=== PATIENT | female | born 1940 | race Caucasian/White ===

== ENCOUNTER → 2018-03-30 | Outpatient (CLI) | payer MEDICARE, BC | LOC: M.RAD 02-18 15:34 | DX: Z12.31 Encounter for screening mammogram for malignant neoplasm of breast (principal); M85.89 Other specified disorders of bone density and structure, multiple sites; Z78.0 Asymptomatic menopausal state ==

== ENCOUNTER → 2019-05-11 | Outpatient (CLI) | payer MEDICARE, BC ==
--- NOTE | 2019-05-14 08:43 | PF ---
[address] [address] PULMONARY FUNCTION REPORT Name: RADU DORAN Room: [facility]#: [id number] Admission: 05/11/19 Attend Phys: Abelardo Richardson MD Discharge: Date of : 44 Report #: [id number] THIS REPORT FOR: //name// CC: Abelardo Su MD DATE OF SERVICE: 05/11/2019 ATTENDING PHYSICIANS: Dr. Lidia Su and Dr. Abelardo Richardson from Radiation Therapy. INDICATION: A 78-year-old female with a history of lung cancer and dyspnea on exertion. Followup PFTs are ordered. FINDINGS: Spirometry demonstrates mild obstructive defect. There is kkum-ix-tjkxsxcj increase with bronchodilator response with 24% increase in vital capacity, 7% increase in FEV1. Postbronchodilator shows an FEV1 of 1.45, FVC is 2.2, ratio is 65%. FEV1 is 86% of predicted. Vital capacity is 97% of predicted. Lung volumes were attempted; not able to undergo. IMPRESSION: Abnormalities suggest mild obstructive airways disease. No significant restrictive lung defect is noted at this time. <ELECTRONICALLY SIGNED> By: Neto De Oliveira MD 05/14/19 0843 [id number] 18Neto De Oliveira MD /nt
== END ==
LOC: M.PUL 10:13
DX: R06.09 Other forms of dyspnea (principal); Z85.118 Personal history of other malignant neoplasm of bronchus and lung

== ENCOUNTER 2019-06-22 11:38 | Inpatient (IN) | payer MEDICARE, BC ==
[2019-06-22] VITALS (8 sets, daily range): BP systolic 107–130; BP diastolic 46–74
[~2019-06-22] VITALS: Ht 152.4 cm; Wt 56.2 kg
[2019-06-22] MEDS ORDERED: GABAPENTIN 100100 MG PO (11:50)
[2019-06-22] MEDS ORDERED: ACYCLOVIR 400400 MG PO (11:51)
[2019-06-22 12:04] LABS: MCH 31.8 pg (26.0-34.0); MCHC 34.7 g/dL (28.0-37.0); MCV 91.7 fL (80.0-100.0); NUCLEATED RBCS 1 /100WBC; RBC 1.76 mil/uL (4.20-5.00); RDW-CV 16.1 % (10.5-14.5)
[2019-06-22 12:12] LABS: HEMATOCRIT 16.1 % (37.0-47.0); HEMOGLOBIN 5.6 gm/dL (12.0-15.0); PLATELET COUNT* 9 thou/uL (150-400); WBC 0.9 thou/uL (4.0-11.0)
[2019-06-22 12:15] LABS: ANION GAP 11 mmol/L (7-16); BUN 24 mg/dL (7-18); CALCIUM 8.9 mg/dL (8.5-10.1); CHLORIDE 100 mmol/L (98-107); CO2 24 mmol/L (21-32); CREATININE 1.6 mg/dL (0.6-1.3); GLUCOSE 121 mg/dL (70-99); POTASSIUM 3.9 mmol/L (3.5-5.1); SODIUM 135 mmol/L (136-145)
[2019-06-22 12:20] LABS: APTT 26.3 Seconds (25.0-31.3); INR 1.2; PROTIME 11.8 Seconds (9.20-11.50)
[2019-06-22 12:26] LABS: ALBUMIN 2.5 g/dL (3.4-5.0); ALKALINE PHOSPHATASE 89 U/L (46-116); NT-PRO BRAIN NAT PEPTIDE 1863 pg/mL (<300); SGOT 51 U/L (15-37); SGPT 92 U/L (30-65); TOTAL BILIRUBIN 0.6 mg/dL (<0.1-1.0); TROPONIN-I LEVEL <0.06 ng/mL (<0.06)
[2019-06-22 12:36] LABS: ABSOLUTE LYMPHOCYTES 0.1 thou/uL (0.8-5.3); ABSOLUTE MONOCYTES 0.2 thou/uL (0.0-1.2); ABSOLUTE NEUTROPHILS 0.6 thou/uL (1.6-8.1); ANISOCYTOSIS 1+; PLATELET ESTIMATE ADEQUATE; TOXIC GRANULATION 1+
--- NOTE | 2019-06-22 16:24 | EKG ---
[place] [address] ELECTROCARDIOGRAM REPORT Name: ESPINOZARADU KOKI Room: [address] ADM IN M.R.#: [id number] Admission: 06/22/19 Attend Phys: Kirit Brown MD Discharge: Date of : 44 Report #: [id number] THIS REPORT FOR: //name// [facility] ED Test Date: 2019-06-22 Test Time: 11:54:28 Pat Name: RADU DORAN Department: Room: [facility] Gender: F Coal Sampler: : 1940 Requested By: Claudy Coello Order Number: [id number] MD: Ihsan Zepeda Measurements Intervals [place] Rate: 103 P: 34 [place]: 134 QRS: 47 QRSD: 78 T: 45 QT: 343 QTc: 449 Interpretive Statements Sinus tachycardia No previous ECG available for comparison Electronically Signed On 06-22-2019 16:24:32 CDT by Ihsan Zepeda [email or web address] <ELECTRONICALLY SIGNED> By: Ihsan Zepeda MD, [facility] 06/22/19 1624 1154 1154 hIsan Zepeda MD, FACC /EPI
--- NOTE | 2019-06-22 18:23 | NUR ---
PT A&Ox4. VITALS STABLE. UP STAND BY. FAMILY IN ROOM. FIRST UNIT OF PRBC INFUSING NOW, NO REACTIONS NOTED. NAUSEA CONTROLLED WITH ZOFRAN. TOLERATING FOOD. IV PATENT. DENIED PAIN. FALL PRECAUTIONS IN PLACE. CALL LIGHT WITHIN REACH. WILL CONTINUE TO MONIOR.
[2019-06-23 05:36] LABS: BASOPHILS 0.8 %; EOSINOPHILS 2.3 %; HEMATOCRIT 21.8 % (37.0-47.0); LYMPHOCYTES 12.9 %; MCH 31.3 pg (26.0-34.0); MCHC 34.8 g/dL (28.0-37.0); MCV 89.9 fL (80.0-100.0); MONOCYTES 13.9 %; MPV 8.2 fl. (7.2-11.1); NUCLEATED RBCS 1 /100WBC; POLYS 70.1 %; RBC 2.42 mil/uL (4.20-5.00)
[2019-06-23 05:46] LABS: ABSOLUTE LYMPHOCYTES 0.1 thou/uL (0.8-5.3); ABSOLUTE MONOCYTES 0.1 thou/uL (0.0-1.2); ABSOLUTE NEUTROPHILS 0.6 thou/uL (1.6-8.1); HEMOGLOBIN 7.6 gm/dL (12.0-15.0); PLATELET COUNT* 57 thou/uL (150-400)
[2019-06-23 05:48] LABS: WBC 0.9 thou/uL (4.0-11.0)
[2019-06-23 05:59] LABS: CALCIUM 8.8 mg/dL (8.5-10.1); CREATININE 1.2 mg/dL (0.6-1.3); POTASSIUM 3.7 mmol/L (3.5-5.1)
--- NOTE | 2019-06-23 06:16 | NUR ---
PATIENT HAS SLEPT WELL THROUGHOUT THE NIGHT. VSS ON RA. PATIENT RECEIVED 2 UNITS OF PRBC'S AND 1 UNIT OF PLATELETS. PATIENT TOLERATED TRANSFUSION WELL. NO SIDE EFFECTS OR COMPLAINTS NOTED. DAUGHTER IN ROOM AT BEDSIDE. PATIENT SLEEPING AT THIS TIME. PATIENT INSTRUCTED TO USE CALL LIGHT WHEN NEEDING ASSISTANCE. HOURLY ROUNDS MADE. WILL CONTINUE WITH PLAN OF CARE AND NURSING TO MONITOR.
[2019-06-23 08:00] VITALS: BP 130/72
[2019-06-23 10:22] VITALS: BP 130/72
--- NOTE | 2019-06-23 12:01 | NUR ---
DISCHARGE NOTE - REVIEWED DISCHARGE INSTRUCTIONS WITH PT AND DTR. NO QUESTIONS. IV REMOVED WITHOUT DIFFICULTY. ALL BELONGINGS SENT WITH PT.
== END 2019-06-23 12:02 | disposition home or self-care (01) | DRG 808 ==
LOC: M.ERS 11:38 → M.TBA-ER 12:42 → M.ORTHSURG 12:42
PROVIDERS: Family Medicine; ADMIT Internal Medicine
PROC: 30233R1 Transfusion of Nonautologous Platelets into Peripheral Vein, Percutaneous Approach (ICD-10-PCS; principal; 2019-06-22)
PROC: 30233N1 Transfusion of Nonautologous Red Blood Cells into Peripheral Vein, Percutaneous Approach (ICD-10-PCS; 2019-06-22)
DX: D61.810 Antineoplastic chemotherapy induced pancytopenia (principal); E43 Unspecified severe protein-calorie malnutrition; C34.90 Malignant neoplasm of unspecified part of unspecified bronchus or lung; J02.9 Acute pharyngitis, unspecified; T45.1X5A Adverse effect of antineoplastic and immunosuppressive drugs, initial encounter; Z92.21 Personal history of antineoplastic chemotherapy; Z92.3 Personal history of irradiation; Z79.899 Other long term (current) drug therapy; Z68.24 Body mass index [BMI] 24.0-24.9, adult; Y92.89 Other specified places as the place of occurrence of the external cause

== ENCOUNTER 2019-07-14 21:33 | Inpatient (IN) | payer MEDICARE, BC ==
[~2019-07-14] VITALS: Ht 152.4 cm; Wt 58.6 kg
[~2019-07-14 21:33] MED LIST: ACYCLOVIR 400400 MG PO; GABAPENTIN 100100 MG PO
[2019-07-14 21:39] VITALS: BP 153/53
[2019-07-14 21:57] LABS: URINE BILIRUBIN NEGATIVE (Negative); URINE BLOOD 2+ (Negative); URINE CLARITY CLEAR; URINE COLOR YELLOW; URINE GLUCOSE-RANDOM NEGATIVE (Negative); URINE KETONES NEGATIVE (Negative); URINE LEUKOCYTES-REFLEX 2+ (Negative); URINE NITRITE-REFLEX NEGATIVE (Negative); URINE PROTEIN 1+ (Negative); URINE UROBILINOGEN 0.2 E.U./dl (0.2-1.0)
[2019-07-14 22:02] LABS: BACTERIA-REFLEX >30 Many /HPF (None Seen); MUCUS None Seen strn/LPF (None Seen); SQUAMOUS >10 Many /LPF (0-3)
[2019-07-14 22:03] LABS: URINE WBC-REFLEX >25 Many /HPF (0-5)
[2019-07-14 22:04] LABS: CASTS None Seen /LPF (None Seen); CRYSTALS None Seen /LPF (None Seen); URINE RBC 3-10 Few /HPF (0-2)
[2019-07-14 22:12] LABS: MCH 31.1 pg (26.0-34.0); MCV 88.8 fL (80.0-100.0); MPV 6.8 fl. (7.2-11.1); NUCLEATED RBCS 3 /100WBC; RBC 1.94 mil/uL (4.20-5.00); RDW-CV 15.3 % (10.5-14.5)
[2019-07-14 22:14] LABS: HEMATOCRIT 17.2 % (37.0-47.0); PLATELET COUNT* 44 thou/uL (150-400); WBC < 0.3 thou/uL (4.0-11.0)
--- NOTE | 2019-07-14 22:17 | NUR ---
PT REFUSED IVF STATING " I HAD TWO BIG BAGS TODAY AT TREATMENT" NOTIFIED DR DA SILVA
[2019-07-14 22:19] LABS: ANION GAP 12 mmol/L (7-16); BUN 18 mg/dL (7-18); CALCIUM 8.2 mg/dL (8.5-10.1); CHLORIDE 100 mmol/L (98-107); CO2 20 mmol/L (21-32); CREATININE 1.4 mg/dL (0.6-1.3); GLUCOSE 218 mg/dL (70-99); INR 1.1; POTASSIUM 4.1 mmol/L (3.5-5.1); SODIUM 132 mmol/L (136-145)
[2019-07-14 22:31] LABS: ALBUMIN 2.4 g/dL (3.4-5.0); ALKALINE PHOSPHATASE 76 U/L (46-116); LIPASE 113 U/L (73-393); NT-PRO BRAIN NAT PEPTIDE 367 pg/mL (<300); SGOT 16 U/L (15-37); SGPT 24 U/L (30-65); TOTAL BILIRUBIN 0.3 mg/dL (<0.1-1.0); TOTAL PROTEIN 6.3 g/dL (6.4-8.2); TROPONIN-I LEVEL <0.06 ng/mL (<0.06)
[2019-07-14 22:48] LABS: ABSOLUTE LYMPHOCYTES 0.1 thou/uL (0.8-5.3); ABSOLUTE NEUTROPHILS 0.1 thou/uL (1.6-8.1)
[2019-07-14 22:49] LABS: PLATELET ESTIMATE DECREASED
[2019-07-14 22:50] LABS: OVALOCYTES Occasional
[2019-07-14 22:51] LABS: ANISOCYTOSIS Occasional
[2019-07-14 22:59] LABS: INFLUENZA A ANTIGEN Negative (Negative); INFLUENZA B ANTIGEN Negative (Negative)
[2019-07-15] VITALS (10 sets, daily range): BP systolic 124–165; BP diastolic 55–63
[2019-07-15 00:44] LABS: HEMATOCRIT 16.5 % (37.0-47.0); HEMOGLOBIN 5.7 gm/dL (12.0-15.0)
[2019-07-15] MEDS ORDERED: ZOFRAN ODT4 MG PO (01:30)
--- NOTE | 2019-07-15 06:00 | NUR ---
PT ADMITTED TO ROOM 218 WITH DX OF NEUTROPENIC FEVER, ANEMIA AND THROMBOCYTOPENIA. PT HGB AT ADMISSION 5. PT PLACED IN PROTECTIVE ISOLATION. PT SEPSIS POSITIVE AND RECIEVING IV BOLUS X3. PT RECEIEVED LAST CHEMO 3 DAYS AGO.PT RECIEVED CHEMO VIA PERIPHERAL ACCESS THAT WAS ESTABLISHED EACH TIME ( NO PORT OR CENTRAL LINE). PT GIVEN ACETAMINOPHEN FOR FEVER MANAGEMENT AND VOMITED BOTH BACK UP. ORDER OBTAINED FOR IV ZOFRAN. PT ABLE TO TOLERATE PO ACETAMINOPEN AND DIPHENHYDRAMINE PRIOR TO TRANSFUSION. PT EDUCATED ON PLAN OF CARE,FALL PRECAUTIONS, SAFETY MANAGEMENT,DISEASE PROCESS AND ISOLATION. PT CALL LIGHT IN REACH WITH NO FURTHER QUESTIONS. ASSESSMENT DOCUMENTED,MEDS GIVEN PER EMAR.
--- NOTE | 2019-07-15 10:35 | NUR ---
ASSUMED CARE OF PATIENT THIS AM AT 0730. PATIENT IS DROWSY, ORIENTED X 4. SHE DENIES PAIN THIS AM. TELE SHOWS SINUS TACHY. 1ST UNIT OF BLOOD COMPLETED BY VEGETABLE SORTER, NO SIGNS OF REACTION. PATIENT'S APPETITE IS POOR. NEUTRAPENIC PRECAUTIONS CONTINUED. HGB NOW 7.0. PATIENT'S FAMILY IS AT THE BEDSIDE. PATIENT ASSISTED UP TO THE BSC THIS AM FOR BM. WILL CONTINUE TO MONITOR PATIENT COMFORT.
--- NOTE | 2019-07-15 16:15 | EKG ---
[place] [address] ELECTROCARDIOGRAM REPORT Name: RADU DORAN Room: [address] ADM IN M.R.#: [id number] Admission: 07/14/19 Attend Phys: Safia Peres MD Discharge: Date of : 44 Report #: [id number] THIS REPORT FOR: //name// [facility] ED Test Date: 2019-07-14 Test Time: 21:52:21 Pat Name: RADU DORAN Department: Room: [facility] Gender: F Medical Information Specialist: : 1940 Requested By: Claudy Coello Order Number: [id number] MD: Bobby Smith Measurements Intervals [place] Rate: 138 P: 70 NC: 118 QRS: 58 QRSD: 78 T: 36 QT: 292 QTc: 443 Interpretive Statements Sinus tachycardia Low voltage, extremity leads Baseline wander in lead(s) V6 Compared to ECG 06/22/2019 11:54:28 Low QRS voltage now present Electronically Signed On 07-15-2019 16:14:52 CDT by Bobby Smith [email or web address] <ELECTRONICALLY SIGNED> By: Bobby Smith MD, FACC 07/15/19 1614 51 51 Bobby Smith MD, FAC /EPI
--- NOTE | 2019-07-15 17:25 | 2DMMODE ---
[place] [address] 2 D/M-MODE ECHOCARDIOGRAM Name: ESPINOZARADU KOKI Room: [address] IN [facility]#: [id number] Admission: 07/14/19 Attend Phys: Safia Peres MD Discharge: Date of : 44 Date of Service: 07/15/19 1725 Report #: [id number] THIS REPORT FOR: //name// APPROVED REPORT Study performed: 07/15/2019 16:51:39 EXAM: Comprehensive 2D, Doppler, and color-flow Echocardiogram Patient Location: In-Patient Room #: 218 Status: routine BSA: 1.50 HR: 112 bpm BP: 165/55 mmHg Rhythm: NSR Other Information Study Quality: Good Indications Sepsis Elevated Troponin 2D Dimensions IVSd: 7.65 (7-11mm) LVOT Diam: 19.18 (18-24mm) LVDd: 38.07 mm PWd: 8.68 (7-11mm) Ascending Ao: 26.95 (22-36mm) LVDs: 26.50 (25-40mm) Aortic Root: 26.73 mm Volumes Left Atrial Volume (Systole) LA ESV Index: 14.30 mL/m2 Aortic Valve AoV Peak Alirio.: 1.51 m/s AO Peak Gr.: 9.11 mmHg LVOT Max P.78 mmHg AO Mean Gr.: 4.78 mmHg LVOT Mean P.40 mmHg LVOT Max V: 1.09 m/s AO V2 VTI: 22.33 cm LVOT Mean V: 0.72 m/s LEONARD (VTI): 2.36 cm2 LVOT V1 VTI: 18.27 cm Mitral Valve E/A Ratio: 0.78 MV Decel. Time: 142.96 [place] [address] 2 D/M-MODE ECHOCARDIOGRAM Name: RADU DORAN Room: [address] IN ..#: [id number] Admission: 07/14/19 Attend Phys: Safia Peres MD Discharge: Date of : 44 Date of Service: 07/15/19 1725 Report #: [id number] MV E Max Alirio.: 1.00 m/s MV PHT: 41.46 ms MVA (PHT): 5.31 cm2 TDI E/Lateral E': 8.33 E/Medial E': 7.69 Medial E' Alirio.: 0.13 m/s Lateral E' Alirio.: 0.12 m/s Pulmonary Valve PV Peak Alirio.: 1.15 m/s PV Peak Gr.: 5.25 mmHg Left Ventricle The left ventricle is normal size. There is normal LV segmental wall motion. There is normal left ventricular wall thickness. Left ventricular systolic function is normal. LVEF is 55-60%. Grade I - abnormal relaxation pattern. Right Ventricle The right ventricle is normal size. The right ventricular systolic function is normal. Atria The left atrium size is normal. The right atrium size is normal. Aortic Valve The aortic valve is normal in structure. No aortic regurgitation is present. There is no aortic valvular stenosis. Mitral Valve The mitral valve is normal in structure. Trace mitral regurgitation. No evidence of mitral valve stenosis. Tricuspid Valve The tricuspid valve is normal in structure. Unable to assess PA pressure. Trace tricuspid regurgitation. Pulmonic Valve The pulmonary valve is normal in structure. There is no pulmonic valvular regurgitation. Great Vessels The aortic root is normal in size. IVC is normal in size and collapses >50% [place] [address] 2 D/M-MODE ECHOCARDIOGRAM Name: RADU DORAN Room: [address] IN [facility]#: [id number] Admission: 07/14/19 Attend Phys: Safia Peres MD Discharge: Date of : 44 Date of Service: 07/15/19 1725 Report #: [id number] Pericardium There is no pericardial effusion. <Conclusion> The left ventricle is normal size. There is normal left ventricular wall thickness. Left ventricular systolic function is normal. LVEF is 55-60%. Grade I - abnormal relaxation pattern. There is normal LV segmental wall motion. Trace mitral regurgitation. Unable to assess PA pressure. Trace tricuspid regurgitation. IVC is normal in size and collapses >50% with inspiration. <ELECTRONICALLY SIGNED> By: Bobby Smith MD, FACC 07/15/191724 24 24 Bobby Smith MD, FACC /INF
[2019-07-16] VITALS (7 sets, daily range): BP systolic 150–184; BP diastolic 60–80
[2019-07-16 04:36] LABS: MCH 30.5 pg (26.0-34.0); MCHC 35.2 g/dL (28.0-37.0); MCV 86.8 fL (80.0-100.0); MPV 7.6 fl. (7.2-11.1); RBC 2.14 mil/uL (4.20-5.00); RDW-CV 14.9 % (10.5-14.5)
[2019-07-16 04:49] LABS: ALBUMIN 1.8 g/dL (3.4-5.0); CALCIUM 8.3 mg/dL (8.5-10.1); CREATININE 1.1 mg/dL (0.6-1.3); MAGNESIUM 1.6 mg/dL (1.8-2.4); POTASSIUM 3.3 mmol/L (3.5-5.1); TOTAL BILIRUBIN 0.5 mg/dL (<0.1-1.0); TOTAL PROTEIN 5.7 g/dL (6.4-8.2)
[2019-07-16 05:00] LABS: HEMATOCRIT 18.6 % (37.0-47.0); HEMOGLOBIN 6.5 gm/dL (12.0-15.0); PLATELET COUNT* 16 thou/uL (150-400); WBC < 0.3 thou/uL (4.0-11.0)
--- NOTE | 2019-07-16 06:04 | NUR ---
PT HAS RESTED COMFORTABLY T/O NIGHT WITH NO COMPLAINTS OF NAUSEA OR PAIN. PT HAD ONE ELEVEATED TEMPERATURE AT 0000. UPON REASSESSMENT PT TEMPERATURE HAD DECREASED. PT APPEARS MORE HIGH SPIRITED. PT VANCO TROUGH SET FOR 07/17. ECHO SHOWED EF OF 55-60%.PT CONTINUES TO GAIN ASSISTANCE TO BSC FROM FAMILY AND IS NON COMPLIANT WITH PRECAUTIONS.
--- NOTE | 2019-07-16 07:32 | CON ---
[address] [address] CONSULTATION Name: RADU DORAN Room: [address] IN M.R.#: [id number] Admission: 07/14/19 Attend Phys: Safia Peres MD Discharge: Date of : 44 Report #: [id number] THIS REPORT FOR: //name// CC: Myrtle Peres DATE OF SERVICE: 07/15/2019 INFECTIOUS DISEASE CONSULTATION ATTENDING PHYSICIAN: Safia Peres MD. REASON FOR EVALUATION: Neutropenic fever. HISTORY OF PRESENT ILLNESS: Chart reviewed, patient examined. This is a 78-year-old woman with a known history of breast carcinoma, is undergoing chemotherapy, where she received the completion of her last course 3 days prior to admission. She presented to the office, was found to be profoundly neutropenic. She has developed some temperature elevations recorded up to 101.4 overnight with a pulse of 133, pressure has been somewhat less labile, did undergo evaluation for suspected infectious complication. Urinalysis did show remarkably high white count of greater than 25 white cells in the setting of a total white count of 300. Chest x-ray was otherwise unrevealing, was empirically started on combination therapy with cefepime and vancomycin. She is somewhat lethargic. She is in moderate distress at this point. There is some dyspnea with any activity, poor p.o. intake and appetite. ALLERGIES: None known. CURRENT MEDICATIONS: Include vancomycin, cefepime, famotidine, p.r.n. analgesics and antiemetics. PAST MEDICAL HISTORY: Described as lung cancer. SOCIAL HISTORY: Nonsmoker, never has illicit drug use. No ethanol. FAMILY HISTORY: Noncontributory. REVIEW OF SYSTEMS: Otherwise, unremarkable 10-point review of systems with exception of the above history of present illness. PHYSICAL EXAMINATION: GENERAL: She appears chronically ill, undernourished, ifkg-ge-pxhmkopq distress. She is pale, has alopecia. VITAL SIGNS: Temperature 98.4, pulse 120, respirations 18, blood pressure is 124/56. [address] [address] CONSULTATION Name: RADU DORAN Room: [address] IN [facility]#: [id number] Admission: 07/14/19 Attend Phys: Sfaia Peres MD Discharge: Date of : 44 Report #: [id number] SKIN: Warm, dry, no rashes. HEENT: Normocephalic. Extraocular muscles intact. NECK: Supple. LUNGS: Generally clear to auscultation. HEART: Regular, tachycardic. I do not appreciate murmur. ABDOMEN: Soft, nontender, nondistended. EXTREMITIES: No cyanosis. GENITOURINARY/RECTAL: Deferred. LABORATORY DATA: Urinalysis, greater than 25 white cells, greater than 30 bacteria. Chest x-ray, no acute process. Lactic acid of 2.0. Electrolytes: Sodium 132, potassium 4.1, chloride 100, bicarbonate is 20, anion gap of 12, BUN and creatinine 18 and 1.4. Albumin of 2.4, total protein 6.3. LFTs unremarkable. Estimated GFR of 37. CBC: White count of less than 0.3, hemoglobin 6.0, hematocrit 17.2, platelets of 44, absolute neutrophil count of 100. Influenza antigen was negative. Blood cultures are sterile thus far. ASSESSMENT: Fevers in the setting of profound neutropenia due to chemotherapy with a complication. We will continue combination of broad-spectrum therapy. Urinary tract seems to be a likely candidate for a pyogenic infection of more focal nature. We will await those cultures. She remains at high risk for severe illness, suspect she has fairly profound anemia, malnourished as well. Monitor expectantly. I discussed with the patient and her daughter. <ELECTRONICALLY SIGNED> By: Real Man MD 07/16/19 0732 1340 Joginger Man MD /nt
--- NOTE | 2019-07-16 10:36 | NUR ---
ASSUMED CARE OF PT AT 0730. PT RESTING IN BED. AND DAUGHTER AT BEDSIDE. PT A&0X4, DENIES ANY PAIN OR SHORTNESS OF BREATH AT THIS TIME. FEBRILE THIS AM AT 100.1. RECHECK-98.1 POST IV VANCOMYCIN. TRACING ST ON THE PUFFER TENDER. RATE IN THE LOW 100'S. NEUTROPENIC PRECUATIONS IN PLACE. ON RA SAT 95%, CONTINUOUS PULSE OX IN PLACE.UP WITH SBA TO BATHROOM. PT HAD CXR THIS AM. REFER TO RESULTS. PT GOAL FOR TODAY IS TRANSFUSE PRBCS AND PLATELETS, REPLACE POTASSIUM AND MAGNESIUM PER ELECTROLYTE PROTOCOL AND REMAIN AFEBRILE. AM ASSESSMENT CHARTED. MEDICATIONS PER DEC. PT REPOSITIONS SELF WITH REMINDERS. HOURLY ROUNDING OBSERVED. BED IN LOW POSITION. CALL LIGHT WITHIN REACH. WILL CONTINUE PLAN OF CARE.
--- NOTE | 2019-07-16 15:19 | NUR ---
Pt is A&O. Resides at home with her . available to assist as needed. Receiving chemo at . Goal is home. No needs anticipated.
--- NOTE | 2019-07-16 18:54 | NUR ---
1 UNIT PLATELETS AND 1 UNIT PRBCS TRANSFUSED WITH NO DIFFICULTIES. PT HAD SLIGHT FEVER THROUGHOUT AT 100.7- PRN TYLENOL GIVEN WITH COMPLETE RELIEF-97.9. POTASSIUM AND MAGNESIUM REPLACED PER ELECTROLYTE PROTOCOL. REFER TO EMAR. PT DENIES ANY PAIN OR SHORTNESS OF BREATH THROUGHOUT SHIFT. MILD WHEEZING NOTED. CONTINUES TO TRACE ST ON THE VAN DRIVER HELPER. RATE IN THE LOW 100'S. ON RA SAT 96-98%. UP WITH SBA TO BATHROOM. APPETITE FAIR THROUGHOUT SHIFT. IVF. MEDICATIONS PER DEC. PT REPOSITIONS SELF. HOURLY ROUNDING OBSERVED. BED IN LOW POSITION. CALL LIGHT WITHIN REACH. WILL CONTINUE PLAN OF CARE.
[2019-07-16 19:46] LABS: HEMOGLOBIN 8.2 gm/dL (12.0-15.0); MCHC 35.5 g/dL (28.0-37.0); MCV 87.3 fL (80.0-100.0); MPV 7.6 fl. (7.2-11.1); RBC 2.64 mil/uL (4.20-5.00); RDW-CV 14.8 % (10.5-14.5)
[2019-07-16 19:50] LABS: PLATELET COUNT* 47 thou/uL (150-400); WBC < 0.3 thou/uL (4.0-11.0)
[2019-07-17] VITALS: BP 172/91
[2019-07-17 04:00] VITALS: BP 158/84
[2019-07-17 04:38] LABS: HEMATOCRIT 23.6 % (37.0-47.0); HEMOGLOBIN 8.4 gm/dL (12.0-15.0); MCH 30.8 pg (26.0-34.0); MCHC 35.5 g/dL (28.0-37.0); MCV 86.5 fL (80.0-100.0); MPV 7.6 fl. (7.2-11.1); RBC 2.73 mil/uL (4.20-5.00); RDW-CV 14.9 % (10.5-14.5)
[2019-07-17 04:50] LABS: CALCIUM 8.8 mg/dL (8.5-10.1); MAGNESIUM 1.8 mg/dL (1.8-2.4); POTASSIUM 3.9 mmol/L (3.5-5.1)
[2019-07-17 04:59] LABS: PLATELET COUNT* 34 thou/uL (150-400); WBC < 0.3 thou/uL (4.0-11.0)
[2019-07-17 13:28] VITALS: BP 174/75
[2019-07-17 16:00] VITALS: BP 174/96
--- NOTE | 2019-07-17 17:14 | NUR ---
ASSUMED PT CARE AT 0730, FULL ASSESMENT DONE CHARTED. PT A/O X4, C/O NOT SLEEPING LAST NIGHT. PT C/O BACK PAIN, OFFERED MEDICATION OR HEAT, PT REFUSED, PT REPOSITIONED TO BE MORE COMFORTABLE IN BED. CARES CLUSTERED THIS SHIFT. PTS VSS, ST ON THE MONITOR. REVERSE ISOLATION MAINTAINED. PT C/O NAUSEA, PROMETHAZINE ORDERED, PT TOLERATED WELL, ABLE TO EAT THIS AFTERNOON. FALL PRECAUTIONS IN PLACE. PTS AT BEDSIDE THIS SHIF. WILL CONTINUE WITH PLAN OF CARE.
[2019-07-17 20:45] VITALS: BP 165/83
[2019-07-18] VITALS (7 sets, daily range): BP systolic 133–163; BP diastolic 64–99
--- NOTE | 2019-07-18 05:05 | NUR ---
PT CARE ASSUMED AT 1800. ALERT AND ORIENTED X4. CALL LIGHT WITHIN REACH AND BED IN LOW POSITION. DENIES PAIN AND SOB. TEMPRATURE RISED TO 100.1 MEDICATION GIVEN PER EMAR. HOURLY ROUNDING DONE FOR PT SAFETY.
[2019-07-18 08:25] LABS: HEMATOCRIT 25.3 % (37.0-47.0); MPV 8.5 fl. (7.2-11.1)
[2019-07-18 08:27] LABS: MCHC 35.6 g/dL (28.0-37.0); MCV 87.3 fL (80.0-100.0); RBC 2.9 mil/uL (4.20-5.00); RDW-CV 14.7 % (10.5-14.5)
[2019-07-18 08:39] LABS: CALCIUM 9.4 mg/dL (8.5-10.1); CREATININE 1.1 mg/dL (0.6-1.3); MAGNESIUM 1.8 mg/dL (1.8-2.4); POTASSIUM 3.4 mmol/L (3.5-5.1)
[2019-07-18 08:55] LABS: WBC 0.7 thou/uL (4.0-11.0)
[2019-07-18 16:49] LABS: HEMATOCRIT 23.4 % (37.0-47.0); HEMOGLOBIN 8.2 gm/dL (12.0-15.0); MCH 30.8 pg (26.0-34.0); MCHC 35.1 g/dL (28.0-37.0); MCV 87.7 fL (80.0-100.0); MPV 8.4 fl. (7.2-11.1); RBC 2.67 mil/uL (4.20-5.00)
[2019-07-18 16:52] LABS: WBC 1.1 thou/uL (4.0-11.0)
--- NOTE | 2019-07-18 19:41 | NUR ---
ASSUMED PT CARE AT 0730, FULL ASSESMENT DONE CHARTED. PT ORIENTED X4, DROWSY AT TIMES, WAS PLEASANT THIS AM, UP TO CHAIR AND TOOK A SHOWER. PT VERY TIRED THIS AFTERNOON, FRUSTRATED BEING DISTURBED. ATTEMPTED TO CLUSTER CARE AND MINIMIZE INTERRUPTIONS. PT HAD 1 UNTI PLATELETS THIS AFTERNOON TOLERATED WELL. PT HAS POOR APITITE. WILL DRINK BOOST STRAWBERRY. PT DENIES PAIN, N/V LESS THAN YESTERDAY. FALL PRECAUTOINS IN PLACE. NEUTROPENIC PRECAUTIONS IN PLACE. REPORT GIVEN TO CINDI TEJEDA.
--- NOTE | 2019-07-18 21:14 | NUR ---
MARK BULLOCK ORDERED, LAB ENETERED ROOM TO DRAW PT CONFRONTED LAB STATING THAT NO ONE IS TO DRAW LABS PER DR ORDER UNTIL AM.PT IS VERY FRUSTRATED,IRRITATED AT MULTIPLE DIFFERENT DIRECTIONS THAT HAVE BEEN TOLD ARE TO OCCUR BUT APPEARS THOUGH "NO ONE TALKS TO EACH OTHER." I AM TO HANG 2300 ANTIBIOTIC PER PT REQUEST THEN TO LEAVE PT ALONE.
--- NOTE | 2019-07-19 05:53 | NUR ---
PT HAS RESTED COMFORTABLY T/O NIGHT WITHOUT INTERRUPTIONS.
[2019-07-19 07:33] LABS: HEMATOCRIT 23.8 % (37.0-47.0); HEMOGLOBIN 8.4 gm/dL (12.0-15.0); MCH 30.9 pg (26.0-34.0); MCHC 35.3 g/dL (28.0-37.0); MCV 87.4 fL (80.0-100.0); MPV 8.8 fl. (7.2-11.1); RBC 2.72 mil/uL (4.20-5.00); RDW-CV 15.2 % (10.5-14.5)
[2019-07-19 07:35] LABS: WBC 1.8 thou/uL (4.0-11.0)
[2019-07-19 07:41] LABS: CALCIUM 9.4 mg/dL (8.5-10.1); CREATININE 1.1 mg/dL (0.6-1.3); MAGNESIUM 1.7 mg/dL (1.8-2.4); POTASSIUM 3.4 mmol/L (3.5-5.1)
[2019-07-19 08:30] VITALS: BP 152/61
[2019-07-19 10:37] VITALS: BP 146/66; BP 153/75; BP 162/72
[2019-07-19 16:29] VITALS: BP 146/70
--- NOTE | 2019-07-19 18:26 | NUR ---
I ASSUMED CARE OF THE PATIENT AT 0700. SHE IS ALERT AND ORIENTED X4 AND IS UP WITH SBA TO THE RESTROOM/BSC. BED IS IN THE LOW LOCKED POSITION AND CALL LIGHT IS IN REACH. HOURLY ROUNDING IS COMPLETED AND PATIENT NEEDS ARE MET. PAIN IS DENIED. FAMILY IS AT THE BEDSIDE. CRITICAL LABS WERE CALLED IN AND PLATELETS WERE GIVEN. PATIENT HAS PERKED UP A BIT. LABS WERE FAXED TO HER ONCOLOGIST. CHEMO WAS FINISHED 07/11 AND FAMILY HAS REQUESTED THAT SHE NOT BE BOTHERED IN THE NIGHT SO HER SLEEP IS NOT INTERRUPTED. WILL CONTINUE TO MONITOR.
[2019-07-19 20:00] VITALS: BP 141/66
--- NOTE | 2019-07-20 01:02 | NUR ---
PT ALERT, ORIENTED, T[place]. UP WITH STAND BY ASSIST. TELEMETRY SHOWS ST. ON RA. PT REQUESTS NO VS OR LABS DURING SLEEP.
[2019-07-20 07:40] LABS: HEMATOCRIT 21.7 % (37.0-47.0); HEMOGLOBIN 7.5 gm/dL (12.0-15.0); MCH 30.4 pg (26.0-34.0); MCHC 34.7 g/dL (28.0-37.0); MCV 87.4 fL (80.0-100.0); MPV 8.2 fl. (7.2-11.1); RBC 2.48 mil/uL (4.20-5.00); RDW-CV 15.2 % (10.5-14.5)
[2019-07-20 07:42] LABS: PLATELET COUNT* 41 thou/uL (150-400)
[2019-07-20 07:51] LABS: MAGNESIUM 1.6 mg/dL (1.8-2.4)
[2019-07-20 09:06] LABS: ABSOLUTE LYMPHOCYTES 0.3 thou/uL (0.8-5.3); ABSOLUTE MONOCYTES 0.2 thou/uL (0.0-1.2); ABSOLUTE NEUTROPHILS 2.5 thou/uL (1.6-8.1)
[2019-07-20 09:07] LABS: PLATELET ESTIMATE DECREASED; TOXIC GRANULATION 3+
[2019-07-20 09:08] LABS: HYPOCHROMASIA 2+; MICROCYTES 1+
--- NOTE | 2019-07-20 10:59 | NUR ---
Spoke with , anticipate dc to home tomorrow, no needs anticipated.
[2019-07-20 16:34] VITALS: BP 133/69
--- NOTE | 2019-07-20 18:23 | NUR ---
ASSUMED PT CARE AT 0700, PT A&O X4, UP WITH WALKER, REMAINS MED SURG STATUS, FULL ASSESSMENT CHARTED. CONT ON REVERSE ISOLATION FOR NEUTROPENIC PRECAUTIONS, CONT TO WORK WITH PT/OT, TOLERATING WELL. HOURLY ROUNDING COMPLETED.
--- NOTE | 2019-07-21 05:27 | NUR ---
ASSUMED PT CARE AT 1915. PT AAOX4, PT VOICED NO CONCERNS THIS SHIFT. VVS AT START OF SHIFT. PT REQUESTED NO INTERRUPTIONS AFTER INITIAL VS AND ASSESSMENT UNTIL 0700. PT SPOUSE AT BEDSIDE OVERNIGHT. CALL LIGHT WITHIN REACH.
[2019-07-21 07:05] VITALS: BP 133/66
[2019-07-21 07:33] LABS: HEMATOCRIT 22.4 % (37.0-47.0); MCHC 35.6 g/dL (28.0-37.0); MPV 7.7 fl. (7.2-11.1); NUCLEATED RBCS 0 /100WBC; RBC 2.58 mil/uL (4.20-5.00); RDW-CV 15.1 % (10.5-14.5); WBC 5.6 thou/uL (4.0-11.0)
[2019-07-21 07:37] LABS: PLATELET COUNT* 31 thou/uL (150-400)
[2019-07-21 07:42] LABS: CALCIUM 9.1 mg/dL (8.5-10.1); MAGNESIUM 1.6 mg/dL (1.8-2.4)
[2019-07-21 08:00] LABS: POTASSIUM 2.8 mmol/L (3.5-5.1)
[2019-07-21 08:18] LABS: ABSOLUTE LYMPHOCYTES 0.3 thou/uL (0.8-5.3); ABSOLUTE MONOCYTES 0.2 thou/uL (0.0-1.2); ABSOLUTE NEUTROPHILS 5.1 thou/uL (1.6-8.1); PLATELET ESTIMATE ADEQUATE
--- NOTE | 2019-07-21 10:00 | NUR ---
INITAL ASSESSMENT COMPLETED CHARTED. VSS. PT DENIES PAIN, CP, SOA, N/V/D AT THIS TIME. PT DENIES ANY FURTHER NEEDS AT THSI TIME. HOURLY ROUNDING IN PLACE, CLWR.
[2019-07-21] MEDS ORDERED: NYAMYC15 GM TOP (11:25)
[2019-07-21] MEDS ORDERED: LEVAQUIN 500 M500 M1 PO (11:25)
[2019-07-21] MEDS ORDERED: GRANIX300 MCG/0. SUBQ (11:25)
[2019-07-21 13:09] VITALS: BP 133/66
--- NOTE | 2019-07-21 15:54 | NUR ---
Pt and declined HH
== END 2019-07-21 14:15 | disposition home or self-care (01) | DRG 808 ==
LOC: M.ERS 21:33 → M.2W 22:29 → M.TBA-ER 22:29 → M.2W 23:48
PROVIDERS: Family Medicine; Internal Medicine; ADMIT Family Medicine
PROC: 30233N1 Transfusion of Nonautologous Red Blood Cells into Peripheral Vein, Percutaneous Approach (ICD-10-PCS; principal; 2019-07-15)
PROC: 30233R1 Transfusion of Nonautologous Platelets into Peripheral Vein, Percutaneous Approach (ICD-10-PCS; 2019-07-19)
DX: D61.810 Antineoplastic chemotherapy induced pancytopenia (principal); R65.11 Systemic inflammatory response syndrome (SIRS) of non-infectious origin with acute organ dysfunction; N39.0 Urinary tract infection, site not specified; E44.1 Mild protein-calorie malnutrition; C34.90 Malignant neoplasm of unspecified part of unspecified bronchus or lung; D61.9 Aplastic anemia, unspecified; I10 Essential (primary) hypertension; E78.5 Hyperlipidemia, unspecified; R50.81 Fever presenting with conditions classified elsewhere; Z85.3 Personal history of malignant neoplasm of breast; Z83.3 Family history of diabetes mellitus; Z82.49 Family history of ischemic heart disease and other diseases of the circulatory system; Z80.9 Family history of malignant neoplasm, unspecified; Z68.25 Body mass index [BMI] 25.0-25.9, adult; Z87.891 Personal history of nicotine dependence

== ENCOUNTER 2019-10-25 10:53 | Inpatient (IN) | payer MEDICARE, BC ==
[~2019-10-25] VITALS: Ht 152.4 cm; Wt 49.0 kg
[~2019-10-25 10:53] MED LIST changes: -COMPAZINE10 M2 PO; -DEXAMETHASONE 44 M1 PO; -LIDODERM1 EACH TOP; -REGLAN 10 MG TA10 MG PO
[2019-10-25 12:32] VITALS: BP 137/60
[2019-10-25 15:59] LABS: ALBUMIN 2.7 g/dL (3.4-5.0); CALCIUM 8.5 mg/dL (8.5-10.1); CREATININE 1.3 mg/dL (0.6-1.3); TOTAL BILIRUBIN 4.7 mg/dL (<0.1-1.0); TOTAL PROTEIN 6.7 g/dL (6.4-8.2)
[2019-10-25 16:06] LABS: ABSOLUTE EOSINOPHILS 0.1 thou/uL (0.0-0.7); ABSOLUTE LYMPHOCYTES 0.5 thou/uL (0.8-5.3); ABSOLUTE MONOCYTES 0.4 thou/uL (0.0-1.2); ABSOLUTE NEUTROPHILS 2.4 thou/uL (1.6-8.1); BASOPHILS 0.8 %; EOSINOPHILS 3.8 %; HEMATOCRIT 33.2 % (37.0-47.0); LYMPHOCYTES 13.3 %; MCH 30.8 pg (26.0-34.0); MCHC 33.7 g/dL (28.0-37.0); MCV 91.3 fL (80.0-100.0); MONOCYTES 10.6 %; MPV 6.8 fl. (7.2-11.1); NUCLEATED RBCS 0 /100WBC; PLATELET COUNT* 185 thou/uL (150-400); POLYS 71.5 %; RBC 3.63 mil/uL (4.20-5.00); WBC 3.4 thou/uL (4.0-11.0)
[2019-10-25 16:09] LABS: HEMOGLOBIN 11.2 gm/dL (12.0-15.0)
[2019-10-25 17:06] VITALS: BP 132/63
[2019-10-25 20:00] VITALS: BP 131/65
[2019-10-26 06:03] LABS: HEMATOCRIT 33.8 % (37.0-47.0); HEMOGLOBIN 11.7 gm/dL (12.0-15.0); MCH 31.2 pg (26.0-34.0); MCHC 34.5 g/dL (28.0-37.0); MCV 90.4 fL (80.0-100.0); RBC 3.74 mil/uL (4.20-5.00); RDW-CV 13.9 % (10.5-14.5); WBC 3.2 thou/uL (4.0-11.0)
[2019-10-26 06:38] LABS: ALBUMIN 2.6 g/dL (3.4-5.0); CREATININE 1.2 mg/dL (0.6-1.3); TOTAL BILIRUBIN 4.3 mg/dL (<0.1-1.0); TOTAL PROTEIN 6.4 g/dL (6.4-8.2)
[2019-10-26 07:15] VITALS: BP 143/73
[2019-10-27 01:32] VITALS: BP 169/77
[2019-10-27 05:50] LABS: HEMATOCRIT 31.7 % (37.0-47.0); HEMOGLOBIN 10.9 gm/dL (12.0-15.0); MCH 31.4 pg (26.0-34.0); MCHC 34.4 g/dL (28.0-37.0); MCV 91.2 fL (80.0-100.0); MPV 6.9 fl. (7.2-11.1); RBC 3.48 mil/uL (4.20-5.00); RDW-CV 14.2 % (10.5-14.5); WBC 2.5 thou/uL (4.0-11.0)
[2019-10-27 06:24] LABS: ALBUMIN 2.5 g/dL (3.4-5.0); CALCIUM 8.1 mg/dL (8.5-10.1); CREATININE 1.1 mg/dL (0.6-1.3); MAGNESIUM 1.6 mg/dL (1.8-2.4); POTASSIUM 3.6 mmol/L (3.5-5.1); TOTAL BILIRUBIN 4.3 mg/dL (<0.1-1.0); TOTAL PROTEIN 6.2 g/dL (6.4-8.2)
[2019-10-27 07:15] VITALS: BP 141/78
[2019-10-27 14:39] VITALS: BP 141/78
[2019-10-27 16:00] VITALS: BP 146/71
[2019-10-27 20:00] VITALS: BP 149/61
[2019-10-28 04:17] LABS: HEMATOCRIT 31.1 % (37.0-47.0); HEMOGLOBIN 10.9 gm/dL (12.0-15.0); MCH 31.7 pg (26.0-34.0); MCV 90.4 fL (80.0-100.0); RBC 3.44 mil/uL (4.20-5.00)
[2019-10-28 04:34] LABS: ALBUMIN 2.4 g/dL (3.4-5.0); CREATININE 1.1 mg/dL (0.6-1.3); MAGNESIUM 1.4 mg/dL (1.8-2.4); TOTAL BILIRUBIN 4.4 mg/dL (<0.1-1.0)
[2019-10-28 07:30] VITALS: BP 135/75
--- NOTE | 2019-10-28 13:49 | EKG ---
[place] [address] ELECTROCARDIOGRAM REPORT Name: RADU DORAN Room: [address] ADM IN .R.#: [id number] Admission: 10/25/19 Attend Phys: Bárbara Thomas MD Discharge: Date of : 44 Report #: [id number] THIS REPORT FOR: //name// [facility] Test Date: 2019-10-28 Test Time: 11:09:08 Pat Name: RADU DORAN Department: Room: [address] Gender: F Diesel Tractor Operator: : 1940 Requested By: Bárbara Thomas Order Number: [id number] Reading MD: Filemon Bella Measurements Intervals [place] Rate: 59 P: 69 MT: 164 QRS: 5 QRSD: 78 T: 47 QT: 423 QTc: 419 Interpretive Statements Sinus rhythm Borderline low voltage, extremity leads Compared to ECG 07/14/2019 21:52:21 Sinus tachycardia no longer present Electronically Signed On 10-28-2019 13:48:26 MORTGAGE LOAN SPECIALIST by Filemon Bella [email or web address] <ELECTRONICALLY SIGNED> By: Filemon Bella MD, [facility] 10/28/19 1348 1109 1109 Filemon Bella MD, [facility] /EPI
[2019-10-28 19:30] VITALS: BP 170/64
[2019-10-29 03:30] VITALS: BP 134/77
[2019-10-29 04:19] LABS: HEMATOCRIT 32.7 % (37.0-47.0); HEMOGLOBIN 11.2 gm/dL (12.0-15.0); MCHC 34.2 g/dL (28.0-37.0); MCV 90.8 fL (80.0-100.0); RBC 3.6 mil/uL (4.20-5.00); RDW-CV 14.5 % (10.5-14.5); WBC 3.6 thou/uL (4.0-11.0)
[2019-10-29 04:46] LABS: ALBUMIN 2.6 g/dL (3.4-5.0); CALCIUM 8.7 mg/dL (8.5-10.1); CREATININE 1.2 mg/dL (0.6-1.3); MAGNESIUM 1.8 mg/dL (1.8-2.4); POTASSIUM 4.5 mmol/L (3.5-5.1); TOTAL BILIRUBIN 2.7 mg/dL (<0.1-1.0); TOTAL PROTEIN 6.5 g/dL (6.4-8.2)
[2019-10-29 08:13] VITALS: BP 155/79
[2019-10-29 11:19] VITALS: BP 155/79
[2019-10-29 16:41] VITALS: BP 173/94
[2019-10-29 21:30] VITALS: BP 164/76
[2019-10-30 04:22] LABS: HEMATOCRIT 36.4 % (37.0-47.0); HEMOGLOBIN 12.4 gm/dL (12.0-15.0); MCH 30.7 pg (26.0-34.0); MCV 90.1 fL (80.0-100.0); MPV 6.8 fl. (7.2-11.1); NUCLEATED RBCS 0 /100WBC; PLATELET COUNT* 264 thou/uL (150-400); RBC 4.04 mil/uL (4.20-5.00); RDW-CV 14.7 % (10.5-14.5); WBC 8.9 thou/uL (4.0-11.0)
[2019-10-30 04:40] LABS: ALBUMIN 3.1 g/dL (3.4-5.0); CALCIUM 8.7 mg/dL (8.5-10.1); CREATININE 1.2 mg/dL (0.6-1.3); MAGNESIUM 2.1 mg/dL (1.8-2.4); POTASSIUM 4.4 mmol/L (3.5-5.1); TOTAL BILIRUBIN 2.1 mg/dL (<0.1-1.0); TOTAL PROTEIN 7.3 g/dL (6.4-8.2)
[2019-10-30 06:24] LABS: ABSOLUTE LYMPHOCYTES 0.4 thou/uL (0.8-5.3); ABSOLUTE MONOCYTES 0.1 thou/uL (0.0-1.2); ABSOLUTE NEUTROPHILS 8.4 thou/uL (1.6-8.1); ANISOCYTOSIS 1+; PLATELET ESTIMATE ADEQUATE; POIKILOCYTOSIS 1+
[2019-10-30 08:45] VITALS: BP 178/90
[2019-10-30 20:00] VITALS: BP 161/67
[2019-10-31 04:37] LABS: HEMATOCRIT 32.6 % (37.0-47.0); HEMOGLOBIN 11.3 gm/dL (12.0-15.0); MCH 31.2 pg (26.0-34.0); MCHC 34.7 g/dL (28.0-37.0); MCV 89.9 fL (80.0-100.0); RBC 3.62 mil/uL (4.20-5.00); RDW-CV 14.3 % (10.5-14.5); WBC 6.1 thou/uL (4.0-11.0)
[2019-10-31 04:58] LABS: ALBUMIN 2.7 g/dL (3.4-5.0); CALCIUM 8.5 mg/dL (8.5-10.1); MAGNESIUM 2.1 mg/dL (1.8-2.4); POTASSIUM 4.9 mmol/L (3.5-5.1); TOTAL BILIRUBIN 1.5 mg/dL (<0.1-1.0); TOTAL PROTEIN 6.3 g/dL (6.4-8.2)
--- NOTE | 2019-10-31 09:28 | CON ---
[address] [address] CONSULTATION Name: RADU DORAN Room: [address] IN M.R.#: [id number] Admission: 10/25/19 Attend Phys: Bárbara Thomas MD Discharge: Date of : 44 Report #: [id number] THIS REPORT FOR: //name// CC: Shimon Champagne MD DATE OF SERVICE: 10/25/2019 GI CONSULTATION REFERRING PHYSICIAN: Myrtle Mathews MD REASON FOR CONSULTATION: Nausea, vomiting, and abdominal pain. IMPRESSION: 1. Recurrent nausea and vomiting, upper abdominal pain. 2. Cholestatic jaundice of uncertain etiology -- evaluate for biliary obstruction versus due to tumor infiltration from known small cell cancer of the lung. 3. Widespread small cell cancer. 4. Dehydration and weight loss secondary to #1. RECOMMENDATIONS: 1. The patient underwent upper endoscopy today, which revealed some radiation esophagitis with mild stricture and extrinsic compression of the stomach along the posterior wall of the stomach without evidence for outlet obstruction. However, blood test done prior to the procedure revealed a bilirubin of 5.4 and alkaline phosphatase of over 800. Because of issues related to nausea, vomiting, abdominal pain and dehydration, I recommend the patient be admitted to the hospital for further evaluation and treatment. 2. We will proceed with an abdominal ultrasound first and if this reveals evidence for biliary obstruction, proceed with an ERCP thereafter. 3. If, however, the patient's abdominal ultrasound does not reveal evidence for dilated biliary tree, we will hydrate the patient to get her GFR improved and proceed with a CT scan of the abdomen and pelvis, oral and IV contrast in the next day or two. 4. Further recommendation will be made thereafter. 5. We will contact Dr. Mathews regarding the same and have her get involved with the patient's care as well. 6. I have discussed the plans with the patient as well as her and daughter and they are agreeable to the same. HISTORY OF PRESENT ILLNESS: This is a pleasant 78-year-[place] [address] CONSULTATION Name: RADU DORAN Room: [address] IN [facility]#: [id number] Admission: 10/25/19 Attend Phys: Bárbara Thomas MD Discharge: Date of : 44 Report #: [id number] diagnosed with small cell cancer of the lung earlier this year, who has undergone radiation and chemotherapy for the same. Dr. Mathews contacted our office late last week to see if we can get her work done because of problem with nausea, vomiting, abdominal pain and for this reason, she underwent upper endoscopy earlier today at [facility]. She has been feeling poorly for the last 3-4 weeks without ability to eat much of anything. She has lost about 12 pounds and does not have 12 pounds to loose. She denies complaints of any dysphagia, odynophagia, but she does not have much of an appetite. She has had problem with nausea, vomiting or keep anything down despite the fact she has been on antiemetics. She also had nausea and upper abdominal pain. She denied any black stools, tarry stools or any blood in her stools. She underwent upper endoscopy today, which revealed radiation esophagitis and a mild esophageal stricture in the proximal esophagus, but the patient has no dysphagia, no dilation was performed. There was extrinsic compression noted on the upper endoscopy and along the posterior wall of the stomach in the upper body suggested that there may be issues outside of the same. Because of issues related to nausea, vomiting, abdominal pain. I recommend the patient be admitted to hospital for further evaluation and treatment. ALLERGIES: None. MEDICATIONS: Omeprazole and antiemetics. PAST MEDICAL AND SURGICAL HISTORY: Remarkable for recent lung cancer diagnosed with a small cell cancer of the same. She has undergone radiation and chemotherapy for the same. Her recent PET scan was unrevealing. SOCIAL HISTORY: The patient quit smoking 20 years ago, does not drink alcohol. FAMILY HISTORY: Negative. PHYSICAL EXAMINATION: GENERAL: Revealed cachectic 78-year-old white female who is awake and alert. CARDIOPULMONARY: Revealed a regular rate and rhythm. LUNGS: Clear. ABDOMEN: Soft. I cannot really appreciate an obvious organomegaly or masses. LABORATORY DATA: From today revealed a white count 3.8, hemoglobin 13.2, platelet count 240,000, MCV is 91.4 and RDW is 14.0. By comparison, last hemoglobin was in the 9 gram range. It is hard to believe that she gained up to 13 points of blood. Her sodium 134, potassium 4.0, chloride 99, bicarbonate is 25, BUN is 22, creatinine 1.4. Her GFR is only 37. Total bilirubin 5.3, alkaline phosphatase 834, AST is 121, ALT 264. Her INR is 1.2. DISCUSSION: At the present time, the patient needs to come in the hospital, [place] [address] CONSULTATION Name: RADU DORAN Room: [address] IN M.R.#: [id number] Admission: 10/25/19 Attend Phys: Bárbara Thomas MD Discharge: Date of : 44 Report #: [id number] admitted for IV hydration and to evaluate why she is having problems with nausea, vomiting, abdominal pain and jaundice. I have discussed these plans with the patient as well as her and daughter and they are agreeable to the same. <ELECTRONICALLY SIGNED> By: Shimon Ruiz DO 10/31/19 0928 [id number] Ruiz DO /nt
[2019-10-31 09:46] VITALS: BP 154/73
[2019-10-31 16:00] VITALS: BP 153/106
[2019-10-31 20:00] VITALS: BP 155/95
[2019-11-01 04:41] LABS: HEMATOCRIT 34.6 % (37.0-47.0); MCH 31.2 pg (26.0-34.0); MCHC 34.7 g/dL (28.0-37.0); MCV 89.8 fL (80.0-100.0); MPV 7.1 fl. (7.2-11.1); RBC 3.85 mil/uL (4.20-5.00); RDW-CV 14.1 % (10.5-14.5); WBC 7.8 thou/uL (4.0-11.0)
[2019-11-01 05:08] LABS: ALBUMIN 2.9 g/dL (3.4-5.0); CALCIUM 8.7 mg/dL (8.5-10.1); MAGNESIUM 2.1 mg/dL (1.8-2.4); POTASSIUM 4.8 mmol/L (3.5-5.1); TOTAL BILIRUBIN 1.4 mg/dL (<0.1-1.0); TOTAL PROTEIN 6.8 g/dL (6.4-8.2)
[2019-11-01 10:00] VITALS: BP 149/89
[2019-11-01] MEDS ORDERED: DEXAMETHASONE 44 M1 PO (11:20)
[2019-11-01] MEDS ORDERED: COMPAZINE10 M2 PO (11:21)
[2019-11-01] MEDS ORDERED: REGLAN 10 MG TA10 MG PO (11:21)
[2019-11-01] MEDS ORDERED: LIDODERM1 EACH TOP (11:22)
--- NOTE | 2019-11-01 17:06 | PATH ---
[address] [address] PATHOLOGY RPT PROCEDURE Name: RADU SHELDON Room: [address] IN M.R.#: [id number] Admission: 10/25/19 Date of : 44 Discharge: 11/01/19 Report #: [id number] Path Case #: [id number] [facility] Accession Number: [id number] . 01 Material submitted: . pancreas - PANCREATIC MASS . 01 Clinical history: . Lung cancer/pancreatic mass . 02 Diagnosis: Pancreas mass, image guided biopsies: - METASTATIC BRONCHOGENIC SMALL-CELL CARCINOMA. SEE COMMENT. (BERNICE:pit 11/01/2019) QTP 11/01/2019 0948 Local . 02 Comment: Sections show large nests of malignant small cells encompassing several small nests of pancreatic acinar tissue. Properly controlled immunohistochemical studies performed on A1 show the neoplastic cells to have the following characteristics, supporting the diagnosis: TTF-1: Positive CD56: Positive Keratin AE1/AE3/CK26: Membranous positive LCA: Negative . Preliminary results relayed to Dr. Zhang at approximately 10:10 on 10/29/2019. Reviewed with Dr. Johanna Wang who agrees with the diagnosis. . (BERNICE:pit 11/01/2019) . 02 Electronically signed: . Scott Lewis MD, Pathologist NPI- [id number] . 01 Gross description: . The specimen is received in formalin, labeled "Radu Sheldon, pancreas mass" and consists of a few needle cores of pink-johnson tissue measuring 1.0 x 0.3 x 0.2 cm in aggregate which are entirely submitted in A1. (SDY; 10/28/2019) SYU/SYU 10/28/2019 1508 Local . 02 Pathologist provided ICD-10: C78.89 . 02 CPT . 568986, [id number], U43835 Specimen Comment: A courtesy copy of this report has been sent to [phone], [place] [address] PATHOLOGY RPT PROCEDURE Name: RADU SHELDON Room: [address] DIS IN M.R.#: [id number] Admission: 10/25/19 Date of : 44 Discharge: 11/01/19 Report #: [id number] Path Case #: [id number] Specimen Comment: [id number], , Specimen Comment: Report sent to ,DR MORALES,DR OROSCO / DR ZHANG Performed at: [address], [place], [place] [id number] MD Pierre Raza MD Phone: [phone] Performed at: 02 [facility] [address], [place], [place] [id number] MD Scott Lewis MD Phone: [phone]
== END 2019-11-01 12:30 | disposition home or self-care (01) | DRG 444 ==
LOC: M.ORTHSURG 10:53
PROVIDERS: Internal Medicine Gastroenterology; ADMIT Internal Medicine
PROC: 0FBG8ZX Excision of Pancreas, Via Natural or Artificial Opening Endoscopic, Diagnostic (ICD-10-PCS; principal; 2019-10-27)
PROC: 0F798DZ Dilation of Common Bile Duct with Intraluminal Device, Via Natural or Artificial Opening Endoscopic (ICD-10-PCS; 2019-10-28)
PROC: BF141ZZ Fluoroscopy of Gallbladder, Bile Ducts and Pancreatic Ducts using Low Osmolar Contrast (ICD-10-PCS; 2019-10-28)
PROC: 0D718ZZ Dilation of Upper Esophagus, Via Natural or Artificial Opening Endoscopic (ICD-10-PCS; 2019-10-28)
DX: K83.1 Obstruction of bile duct (principal); N17.1 Acute kidney failure with acute cortical necrosis; E44.0 Moderate protein-calorie malnutrition; C79.31 Secondary malignant neoplasm of brain; C34.90 Malignant neoplasm of unspecified part of unspecified bronchus or lung; E87.1 Hypo-osmolality and hyponatremia; E86.0 Dehydration; K20.9 Esophagitis, unspecified; N28.89 Other specified disorders of kidney and ureter; K83.9 Disease of biliary tract, unspecified; N18.3 Chronic kidney disease, stage 3 (moderate); K86.89 Other specified diseases of pancreas; K22.2 Esophageal obstruction; N28.9 Disorder of kidney and ureter, unspecified; R74.8 Abnormal levels of other serum enzymes; Z79.899 Other long term (current) drug therapy; Z68.21 Body mass index [BMI] 21.0-21.9, adult; Z85.118 Personal history of other malignant neoplasm of bronchus and lung; Z87.891 Personal history of nicotine dependence

== ENCOUNTER → 2019-10-25 | Outpatient (CLI) | payer MEDICARE, BC ==
[~2019-10-25] MED LIST changes: +COMPAZINE10 M2 PO; +DEXAMETHASONE 44 M1 PO; +GRANIX300 MCG/0. SUBQ; +LEVAQUIN 500 M500 M1 PO; +LIDODERM1 EACH TOP; +NYAMYC15 GM TOP; +REGLAN 10 MG TA10 MG PO; +ZOFRAN ODT4 MG PO
[2019-10-25 07:35] LABS: ABSOLUTE EOSINOPHILS 0.3 thou/uL (0.0-0.7); ABSOLUTE LYMPHOCYTES 0.5 thou/uL (0.8-5.3); ABSOLUTE MONOCYTES 0.3 thou/uL (0.0-1.2); ABSOLUTE NEUTROPHILS 2.6 thou/uL (1.6-8.1); BASOPHILS 1.1 %; EOSINOPHILS 7.5 %; HEMATOCRIT 38.8 % (37.0-47.0); HEMOGLOBIN 13.2 gm/dL (12.0-15.0); LYMPHOCYTES 14.3 %; MCH 31.1 pg (26.0-34.0); MCV 91.4 fL (80.0-100.0); MPV 6.8 fl. (7.2-11.1); NUCLEATED RBCS 0 /100WBC; PLATELET COUNT* 240 thou/uL (150-400); POLYS 69.1 %; RBC 4.24 mil/uL (4.20-5.00); WBC 3.8 thou/uL (4.0-11.0)
[2019-10-25 07:46] LABS: INR 1.2; PROTIME 12.7 Seconds (9.20-11.50)
[2019-10-25 07:48] LABS: ALBUMIN 3.2 g/dL (3.4-5.0); CALCIUM 9.2 mg/dL (8.5-10.1); CREATININE 1.4 mg/dL (0.6-1.3); TOTAL BILIRUBIN 5.3 mg/dL (<0.1-1.0); TOTAL PROTEIN 8.1 g/dL (6.4-8.2)
== END ==
LOC: M.LAB 07:00
PROVIDERS: Internal Medicine Gastroenterology
DX: R10.11 Right upper quadrant pain (principal); C34.90 Malignant neoplasm of unspecified part of unspecified bronchus or lung; R17 Unspecified jaundice; R63.4 Abnormal weight loss; R11.2 Nausea with vomiting, unspecified; K82.8 Other specified diseases of gallbladder; R79.1 Abnormal coagulation profile